=== PATIENT | male | born 1980 | race Hispanic/Latino ===

== ENCOUNTER 2017-09-28 09:09 | Outpatient (CLI) | payer OTHER | END 2017-09-28 09:10 | disposition home or self-care (01) | LOC: BICULT 09:09 → EDSTATUS 09:30 | PROVIDERS: ATTEND Family Medicine | DX: R10.9 Unspecified abdominal pain (principal); R93.2 Abnormal findings on diagnostic imaging of liver and biliary tract | CPT/HCPCS: 76705 ==

== ENCOUNTER 2017-10-05 07:08 | Emergency (ER) | payer OTHER ==
[2017-10-05] MEDS ORDERED: Ketorolac Tromethamine 30 MG/ML VIAL ONE (07:32)
[2017-10-05 07:41] LABS: #Basophils 0.1 thou/uL (0.0-0.2); #Eosinphils 0.2 thou/uL (0.0-0.7); #Lymphocytes 3.3 thou/uL (1.20-3.40); #Monocytes 1.3 thou/uL (0.11-0.59); #Neutrophils 10.1 thou/uL (1.40-6.50); %Basophils 0.9 % (0.0-1.0); %Eosinophils 1.3 % (0.0-10.0); %Lymphocytes 21.8 % (21.0-51.0); %Monocytes 8.6 % (0.0-10.0); %Neutrophils 67.4 % (42.0-75.0); Hemoglobin 13.9 g/dL (14.0-18.0); Mean Corpuscular HGB CONC 33.5 g/dL (32.0-36.0); Mean Corpuscular Hemoglobin 27.8 pg (27.0-31.0); Mean Corpuscular Volume 83.1 fL (78.0-98.0); Mean Platelet Volume 6.7 fL (7.4-10.4); Platelet Count 340 thou/uL (130-400); RBC Distribution Width 12.6 % (11.5-14.5); White Blood Cell (WBC) Count 14.9 thou/uL (4.8-10.8)
[2017-10-05 07:54] LABS: ALT (SGPT) 23 U/L (8-55); AST (SGOT) 15 U/L (5-34); Alkaline Phosphatase 64 U/L (40-150); Anion Gap 13 mmol/L (10-20); BUN (Urea Nitrogen) 15 mg/dL (8.9-20.6); Calc. Creatinine Clearance 0 mL/min (70-130); Calcium 9.2 mg/dL (7.8-10.44); Carbon Dioxide 23 mmol/L (22-29); Chloride 103 mmol/L (98-107); Estimated GFR-MDRD Greater than 90; Globulin 3.8 g/dL (2.4-3.5); Glucose 136 mg/dL (70-105); Lipase 15 U/L (8-78); Protein, Total 7.8 g/dL (6.0-8.3); Sodium 135 mmol/L (136-145)
[2017-10-05] MEDS ORDERED: metroNIDAZOLE 500 MG/100 ML BAG ONE (08:09)
--- NOTE | 2017-10-05 08:39 | CT ---
CT ABDOMEN AND PELVIS NONCONTRAST: Date: 10/05/17 HISTORY: Flank pain. FINDINGS: No comparison. Each renal collecting system, ureter, and the urinary bladder are decompressed. A 0.1 cm calculus is present within a nondilated viv at the superior pole right kidney. Lack of contrast limits evaluation for other abnormalities. Liver is diffusely hypodense. No evidence of bowel obstruction. Degenerative changes lumbar spine. Prominent diverticula arising from the colo n, most pronounced at the sigmoid colon. Subtle stranding within the abdominal fat surrounding the up per sigmoid colon. IMPRESSION: 1. Tiny, nonobstructing right renal calculus. 2. Sigmoid diverticulitis. 3. Hepatic steatosis. POS: [facility]
== END 2017-10-05 10:16 | disposition home or self-care (01) ==
LOC: SCSER 07:08
DX: K57.32 Diverticulitis of large intestine without perforation or abscess without bleeding (principal); E78.5 Hyperlipidemia, unspecified; I10 Essential (primary) hypertension; G89.29 Other chronic pain; M54.9 Dorsalgia, unspecified
CPT/HCPCS: 74176; 80053; 83605; 83690; 85025; 96365; 96367; 96375; J1885; J1956

== ENCOUNTER 2018-03-12 17:00 | Outpatient (CLI) | payer OTHER | END 2018-03-12 17:01 | disposition home or self-care (01) | LOC: SLEEPLAB 17:00 | PROVIDERS: ATTEND Family Medicine | DX: G47.33 Obstructive sleep apnea (adult) (pediatric) (principal); E66.9 Obesity, unspecified; F41.9 Anxiety disorder, unspecified; F32.9 Major depressive disorder, single episode, unspecified; R09.89 Other specified symptoms and signs involving the circulatory and respiratory systems; Z68.42 Body mass index [BMI] 45.0-49.9, adult | CPT/HCPCS: 95806 ==

== ENCOUNTER 2020-01-08 13:54 | Emergency (ER) | payer BC, SELFPAY ==
--- NOTE | 2020-01-08 14:19 | RAD ---
CHEST 1 VIEW: Date: 01/08/2020 HISTORY: Chest pain. COMPARISON: None. FINDINGS: Lungs are clear. No pneumothorax or effusion. Cardiac silhouette and mediastinal contours are within normal limits. No acute osseous abnormality. IMPRESSION: No acute intrathoracic abnormality. POS: [facility]
[2020-01-08 14:20] LABS: #Basophils 0.1 thou/uL (0.0-0.2); #Eosinphils 0.3 thou/uL (0.0-0.7); #Lymphocytes 2.3 thou/uL (1.20-3.40); #Monocytes 0.5 thou/uL (0.11-0.59); #Neutrophils 7.1 thou/uL (1.40-6.50); %Basophils 0.6 % (0.0-1.0); %Eosinophils 2.6 % (0.0-10.0); %Lymphocytes 22.6 % (21.0-51.0); %Monocytes 5.3 % (0.0-10.0); Hemoglobin 13.5 g/dL (14.0-18.0); Mean Corpuscular HGB CONC 32.6 g/dL (32.0-36.0); Mean Corpuscular Hemoglobin 28.7 pg (27.0-31.0); Mean Corpuscular Volume 87.9 fL (78.0-98.0); Mean Platelet Volume 7.1 fL (7.4-10.4); Platelet Count 388 thou/uL (130-400); RBC Distribution Width 12.4 % (11.5-14.5); Red Blood Cell (RBC) Count 4.72 mill/uL (4.70-6.10); White Blood Cell (WBC) Count 10.3 thou/uL (4.8-10.8)
[2020-01-08 14:44] LABS: ALT (SGPT) 25 U/L (8-55); AST (SGOT) 20 U/L (5-34); Albumin 4.2 g/dL (3.5-5.0); Alkaline Phosphatase 69 U/L (40-110); Anion Gap 15 mmol/L (10-20); BUN (Urea Nitrogen) 17 mg/dL (8.9-20.6); Bilirubin, Total 0.4 mg/dL (0.2-1.2); Calc. Creatinine Clearance 0 mL/min (70-130); Calcium 9.3 mg/dL (7.8-10.44); Carbon Dioxide 24 mmol/L (22-29); Chloride 101 mmol/L (98-107); Estimated GFR-MDRD 82; Globulin 3.6 g/dL (2.4-3.5); Glucose 196 mg/dL (70-105); Lipase 44 U/L (8-78); Protein, Total 7.8 g/dL (6.0-8.3); Sodium 136 mmol/L (136-145)
[2020-01-08] MEDS ORDERED: Aspirin 325 MG TAB ONE (14:49)
[2020-01-08] MEDS ORDERED: Diazepam 10 MG/2 ML SYRINGE ONE (15:23)
[2020-01-08] MEDS ORDERED: Acetaminophen 500 MG TAB ONE (15:23)
[2020-01-08 17:47] LABS: Troponin I Less than 0.010 ng/mL (< 0.028)
--- NOTE | 2020-01-18 11:01 | EKG ---
Test Reason : Blood Pressure : / mmHG Vent. Rate : 080 BPM Atrial Rate : 080 BPM P-R Int : 158 ms QRS Dur : 080 ms QT Int : 386 ms P-R-T Axes : 033 039 043 degrees QTc Int : 445 ms Poor data quality, interpretation may be adversely affected Normal sinus rhythm Normal ECG Confirmed by CARLOS DANIELSON DO ([id number]), news videotape editor MARISA GREENE ([id number] on 01/18/2020 11:00:56 AM Referred By: Confirmed By:CARLOS DANIELSON DO
== END 2020-01-08 19:26 | disposition home or self-care (01) ==
LOC: ERS 13:54
DX: R07.9 Chest pain, unspecified (principal); R00.2 Palpitations; E78.5 Hyperlipidemia, unspecified; I10 Essential (primary) hypertension; E11.9 Type 2 diabetes mellitus without complications; F41.9 Anxiety disorder, unspecified; Z79.84 Long term (current) use of oral hypoglycemic drugs; Z79.899 Other long term (current) drug therapy
CPT/HCPCS: 36415; 71045; 80053; 83690; 84484; 85025; 93005; 94760; 96374; J3360

== ENCOUNTER 2020-01-13 02:26 | Emergency (ER) | payer BC, SELFPAY ==
[2020-01-13] MEDS ORDERED: diphenhydrAMINE 50 MG/ML VIAL ONE (02:49)
[2020-01-13] MEDS ORDERED: Metoclopramide HCl 10 MG/2 ML VIAL ONE (02:49)
[2020-01-13] MEDS ORDERED: Acetaminophen 500 MG TAB ONE (02:49)
[2020-01-13] MEDS ORDERED: Ketorolac Tromethamine 30 MG/ML VIAL ONE (02:49)
== END 2020-01-13 04:25 | disposition home or self-care (01) ==
LOC: ERS 02:26
DX: R51.9 Headache, unspecified (principal); E78.5 Hyperlipidemia, unspecified; I10 Essential (primary) hypertension; E11.9 Type 2 diabetes mellitus without complications; F41.9 Anxiety disorder, unspecified; Z79.84 Long term (current) use of oral hypoglycemic drugs; Z79.899 Other long term (current) drug therapy
CPT/HCPCS: 96365; 96375; J1200; J1885; J2765

== ENCOUNTER 2020-03-21 18:18 | Emergency (ER) | payer BC, SELFPAY ==
[2020-03-21 18:58] LABS: #Basophils 0.1 thou/uL (0.0-0.2); #Eosinphils 0.4 thou/uL (0.0-0.7); #Lymphocytes 3.3 thou/uL (1.20-3.40); #Monocytes 0.8 thou/uL (0.11-0.59); #Neutrophils 6.8 thou/uL (1.40-6.50); %Basophils 0.7 % (0.0-1.0); %Eosinophils 3.9 % (0.0-10.0); %Lymphocytes 29.1 % (21.0-51.0); %Monocytes 6.6 % (0.0-10.0); %Neutrophils 59.7 % (42.0-75.0); Hemoglobin 13.5 g/dL (14.0-18.0); Mean Corpuscular HGB CONC 33.8 g/dL (32.0-36.0); Mean Corpuscular Hemoglobin 29.5 pg (27.0-31.0); Mean Corpuscular Volume 87.3 fL (78.0-98.0); Platelet Count 360 thou/uL (130-400); RBC Distribution Width 12.3 % (11.5-14.5); Red Blood Cell (RBC) Count 4.59 mill/uL (4.70-6.10); White Blood Cell (WBC) Count 11.4 thou/uL (4.8-10.8)
[2020-03-21 19:17] LABS: ALT (SGPT) 26 U/L (8-55); AST (SGOT) 16 U/L (5-34); Albumin 4.1 g/dL (3.5-5.0); Alkaline Phosphatase 72 U/L (40-110); Anion Gap 16 mmol/L (10-20); BUN (Urea Nitrogen) 19 mg/dL (8.9-20.6); Bilirubin, Total 0.3 mg/dL (0.2-1.2); Calc. Creatinine Clearance 0 mL/min (70-130); Calcium 9.3 mg/dL (7.8-10.44); Carbon Dioxide 22 mmol/L (22-29); Chloride 102 mmol/L (98-107); Globulin 3.8 g/dL (2.4-3.5); Glucose 112 mg/dL (70-105); Lipase 44 U/L (8-78); Potassium 4.1 mmol/L (3.5-5.1); Protein, Total 7.9 g/dL (6.0-8.3); Sodium 136 mmol/L (136-145)
[2020-03-21] MEDS ORDERED: Ondansetron PF 4 MG/2 ML Vial ONE (19:57)
[2020-03-21] MEDS ORDERED: Morphine 4 MG/ML VIAL ONE (19:57)
--- NOTE | 2020-03-21 22:14 | ULT ---
ULTRASOUND GALLBLADDER RIGHT UPPER QUADRANT: History: Abdominal pain Comparison: None FINDINGS: Real-time grayscale and color evaluation of the right upper quadrant of the abdomen was performed. Visualized portion of the IVC, aorta, and pancreas unremarkable. Diffuse increased hepatic echotextur e with poor penetration. Gallbladder wall thickness is normal. No pericholecystic fluid. No cholelith iasis. No common bile duct dilatation. Right kidney measures 11.7 x 6.1 x 7.2 cm without mass, hydronephrosi s, or calcification present. IMPRESSION: 1. Diffuse hepatic steatosis. 2. No cholelithiasis or cholecystitis. POS: [facility]
[2020-03-22 00:48] LABS: Bilirubin Negative (Negative); Blood, Urine Negative (Negative); Clarity Clear (Clear); Glucose, Urine (Dipstick) Normal (Negative); Ketone, Urine Negative (Negative); Leukocyte Negative Leu/uL (Negative); Nitrite Negative (Negative); Protein, Urine (Dipstick) Negative (Neg-Trace); Specific Gravity, Urine 1.023 (1.002-1.036); Urobilinogen Normal mg/dL (Less than 2)
== END 2020-03-21 21:29 | disposition home or self-care (01) ==
LOC: ERS 18:18
DX: R10.11 Right upper quadrant pain (principal); E78.5 Hyperlipidemia, unspecified; I10 Essential (primary) hypertension; E11.9 Type 2 diabetes mellitus without complications
CPT/HCPCS: 36415; 76705; 80053; 81003; 83690; 84484; 85025; 93005; 96374; J2270; J2405

== ENCOUNTER 2020-07-14 21:07 | Emergency (ER) | payer BC ==
[2020-07-14 21:35] LABS: #Basophils 0.1 thou/uL (0.0-0.2); #Eosinphils 0.4 thou/uL (0.0-0.7); #Lymphocytes 3.8 thou/uL (1.20-3.40); #Monocytes 0.8 thou/uL (0.11-0.59); %Basophils 0.7 % (0.0-1.0); %Eosinophils 2.6 % (0.0-10.0); %Lymphocytes 26.9 % (21.0-51.0); %Monocytes 5.8 % (0.0-10.0); %Neutrophils 63.9 % (42.0-75.0); Hemoglobin 13.5 g/dL (14.0-18.0); Mean Corpuscular HGB CONC 33.1 g/dL (32.0-36.0); Mean Corpuscular Volume 87.6 fL (78.0-98.0); Mean Platelet Volume 7.1 fL (7.4-10.4); Platelet Count 394 thou/uL (130-400); RBC Distribution Width 12.6 % (11.5-14.5); Red Blood Cell (RBC) Count 4.66 mill/uL (4.70-6.10)
[2020-07-14 21:55] LABS: ALT (SGPT) 20 U/L (8-55); AST (SGOT) 18 U/L (5-34); Albumin 4.2 g/dL (3.5-5.0); Alkaline Phosphatase 71 U/L (40-110); Anion Gap 14 mmol/L (10-20); BUN (Urea Nitrogen) 16 mg/dL (8.9-20.6); Bilirubin, Total 0.3 mg/dL (0.2-1.2); Calc. Creatinine Clearance 0 mL/min (70-130); Calcium 9.4 mg/dL (7.8-10.44); Carbon Dioxide 26 mmol/L (22-29); Chloride 101 mmol/L (98-107); Globulin 3.8 g/dL (2.4-3.5); Glucose 188 mg/dL (70-105); Potassium 3.9 mmol/L (3.5-5.1); Sodium 137 mmol/L (136-145)
[2020-07-14] MEDS ORDERED: Lidocaine Viscous Sol 2% 15 ml UD Cup ONE (22:36)
[2020-07-14] MEDS ORDERED: Mag-Al 1200 mg/1200 mg/30 ML UDCUP ONE (22:36)
== END 2020-07-14 23:21 | disposition home or self-care (01) ==
LOC: ERS 21:07
DX: R07.2 Precordial pain (principal); R10.13 Epigastric pain; Z79.899 Other long term (current) drug therapy; Z79.84 Long term (current) use of oral hypoglycemic drugs; E78.5 Hyperlipidemia, unspecified; I10 Essential (primary) hypertension; E11.9 Type 2 diabetes mellitus without complications
CPT/HCPCS: 36415; 71045; 80053; 83880; 84484; 85025; 93005

== ENCOUNTER 2021-09-14 11:39 | Inpatient (IN) | payer BC ==
[~2021-09-14 11:39] MED LIST: Iopamidol-370 76% 500 ML 1 ML ONE
[2021-09-14 12:15] LABS: #Eosinphils 0.8 thou/uL (0.0-0.7); #Lymphocytes 1.6 thou/uL (1.20-3.40); #Neutrophils 9.4 thou/uL (1.40-6.50); %Basophils 0.2 % (0.0-1.0); %Eosinophils 6.6 % (0.0-10.0); %Lymphocytes 12.2 % (21.0-51.0); %Monocytes 8.1 % (0.0-10.0); %Neutrophils 72.9 % (42.0-75.0); Hemoglobin 11.9 g/dL (14.0-18.0); Mean Corpuscular HGB CONC 31.7 g/dL (32.0-36.0); Mean Corpuscular Hemoglobin 27.3 pg (27.0-31.0); Mean Platelet Volume 6.1 fL (7.4-10.4); Platelet Count 566 thou/uL (130-400); RBC Distribution Width 13.2 % (11.5-14.5); Red Blood Cell (RBC) Count 4.36 mill/uL (4.70-6.10); White Blood Cell (WBC) Count 12.8 thou/uL (4.8-10.8)
[2021-09-14 12:43] LABS: ALT (SGPT) 39 U/L (8-55); AST (SGOT) 22 U/L (5-34); Alkaline Phosphatase 68 U/L (40-110); Anion Gap 15 mmol/L (10-20); BUN (Urea Nitrogen) 14 mg/dL (8.9-20.6); Bilirubin, Total 0.8 mg/dL (0.2-1.2); Calc. Creatinine Clearance 0 mL/min (70-130); Calcium 9.7 mg/dL (7.8-10.44); Carbon Dioxide 23 mmol/L (22-29); Chloride 100 mmol/L (98-107); Globulin 4.6 g/dL (2.4-3.5); Glucose 164 mg/dL (70-105); Potassium 4.1 mmol/L (3.5-5.1); Protein, Total 8.6 g/dL (6.0-8.3); Sodium 134 mmol/L (136-145)
[2021-09-14] MEDS ORDERED: Acetaminophen 500 MG TAB ONE (15:41)
[2021-09-14] MEDS ORDERED: Piperacillin/Tazobactam 3.375 GM in Sodium Chloride 0.9% 100 ML IVPB SCH (17:30)
[2021-09-14] MEDS ORDERED: VANCOMYCIN 2 GRAM/500 ML BAG 2 GM in Premix Bag 1 BAG IVPB SCH (17:30)
[2021-09-14] MEDS ORDERED: Piperacillin/Tazobactam 3.375 GM VIAL ONE (17:50)
[2021-09-14] MEDS ORDERED: Ondansetron PF 4 MG/2 ML Vial IVP PRN (18:43)
[2021-09-14] MEDS ORDERED: Dextrose 50% Abboject 50 ML SYRINGE SLOW IVP PRN (18:57)
[2021-09-14] MEDS ORDERED: HumaLOG 300 UNITS/3 ML VIAL SC PRN (18:57)
[2021-09-14] MEDS ORDERED: Dextrose 5% in Water 1,000 ML IV PRN (18:57)
[2021-09-14] MEDS ORDERED: Bisacodyl 5 MG TAB PO SCH (19:02)
[2021-09-14] MEDS ORDERED: Melatonin 3 MG TAB PO PRN (19:02)
[2021-09-14] MEDS ORDERED: Bisacodyl 5 MG TAB PO PRN (19:02)
[2021-09-14] MEDS: Heparin 5,000 UNITS/ML VIAL SC SCH (20:13)
[2021-09-14] MEDS ORDERED: Pantoprazole 40 MG VIAL IVP SCH (21:00)
[2021-09-14 22:06] VITALS: BMI 43.7
[2021-09-14] MEDS ORDERED: hydrALAZINE 20 MG/ML VIAL SLOW IVP PRN (22:39)
[2021-09-14] MEDS ORDERED: clonazePAM 1 MG TAB PO PRN (22:40)
[2021-09-14] MEDS: Piperacillin/Tazobactam 3.375 GM in Sodium Chloride 0.9% 100 ML IVPB SCH (22:59)
[2021-09-14] MEDS ORDERED: Sucralfate 1 GM TAB PO SCH (23:00)
[2021-09-14] MEDS ORDERED: Atorvastatin Calcium 10 MG TAB PO SCH (23:00)
[2021-09-15] MEDS: Vancomycin 1.5 GRAM/300 ML BAG 1.5 GM in Premix Bag 1 BAG IVPB SCH ×2 (04:15→15:35)
[2021-09-15 05:10] LABS: #Basophils 0.1 thou/uL (0.0-0.2); #Lymphocytes 1.3 thou/uL (1.20-3.40); #Monocytes 0.8 thou/uL (0.11-0.59); #Neutrophils 7.7 thou/uL (1.40-6.50); %Basophils 0.5 % (0.0-1.0); %Eosinophils 8.8 % (0.0-10.0); %Monocytes 7.6 % (0.0-10.0); %Neutrophils 71.1 % (42.0-75.0); Hemoglobin 11.8 g/dL (14.0-18.0); Mean Corpuscular HGB CONC 32.4 g/dL (32.0-36.0); Mean Corpuscular Hemoglobin 28.1 pg (27.0-31.0); Mean Corpuscular Volume 86.7 fL (78.0-98.0); Mean Platelet Volume 6.5 fL (7.4-10.4); Platelet Count 472 thou/uL (130-400); RBC Distribution Width 13.2 % (11.5-14.5); Red Blood Cell (RBC) Count 4.21 mill/uL (4.70-6.10); White Blood Cell (WBC) Count 10.9 thou/uL (4.8-10.8)
[2021-09-15 05:27] LABS: INR-International Normal Ratio 1.1; Prothrombin Time 14.7 sec (12.0-14.7)
[2021-09-15 05:41] LABS: ALT (SGPT) 31 U/L (8-55); AST (SGOT) 21 U/L (5-34); Albumin 3.6 g/dL (3.5-5.0); Alkaline Phosphatase 63 U/L (40-110); Anion Gap 13 mmol/L (10-20); BUN (Urea Nitrogen) 14 mg/dL (8.9-20.6); Bilirubin, Total 0.6 mg/dL (0.2-1.2); Calc. Creatinine Clearance 231 mL/min (70-130); Calcium 9.4 mg/dL (7.8-10.44); Carbon Dioxide 24 mmol/L (22-29); Chloride 101 mmol/L (98-107); Cholesterol 157 mg/dl (< 200 Desired); Globulin 4.4 g/dL (2.4-3.5); Glucose 168 mg/dL (70-105); HDL Cholesterol 26 mg/dL (>60 Neg Risk); LDL Cholesterol, Calculated 105 mg/dL; Potassium 4.2 mmol/L (3.5-5.1); Sodium 134 mmol/L (136-145); Triglycerides 132 mg/dL (Less than 150)
[2021-09-15] MEDS: Piperacillin/Tazobactam 3.375 GM in Sodium Chloride 0.9% 100 ML IVPB SCH (06:07)
[2021-09-15] MEDS: Sucralfate 1 GM TAB PO SCH ×3 (06:08→18:42)
[2021-09-15] MEDS ORDERED: Pantoprazole 40 MG VIAL IVP SCH (09:00)
[2021-09-15] MEDS ORDERED: Bupivacaine PF 0.5% 30 ML VIAL ONE (10:48)
[2021-09-15] MEDS ORDERED: EPINEPHrine 1 MG/ML AMP ONE (10:48)
[2021-09-15] MEDS ORDERED: PROPOFOL 200 MG/20 ML VIAL ONE (10:54)
[2021-09-15] MEDS ORDERED: Metoclopramide HCl 10 MG/2 ML VIAL ONE (10:54)
[2021-09-15] MEDS ORDERED: Glycopyrrolate 0.2 MG/ML 5 ML SYRINGE ONE (10:54)
[2021-09-15] MEDS ORDERED: Ondansetron PF 4 MG/2 ML Vial ONE (10:54)
[2021-09-15] MEDS ORDERED: Rocuronium Bromide 10 MG/ML (10ML VIAL) ONE (10:54)
[2021-09-15] MEDS ORDERED: fentaNYL Citrate/PF 100 MCG/2 ML SYRINGE ONE ×2 (10:56→12:06)
[2021-09-15] MEDS ORDERED: Fentanyl 100 MCG/2 ML VIAL SLOW IVP PRN (12:24)
[2021-09-15] MEDS ORDERED: Ketorolac Tromethamine 30 MG/ML VIAL ONE (12:43)
[2021-09-15] MEDS ORDERED: Ketorolac Tromethamine 30 MG/ML VIAL IVP PRN (12:48)
[2021-09-15] MEDS ORDERED: Ondansetron HCl/PF 4 MG/2 ML Vial IVP PRN (12:48)
[2021-09-15] MEDS ORDERED: Promethazine HCl 25 MG/ML VIAL IM PRN (12:48)
[2021-09-15] MEDS ORDERED: Promethazine HCl 25 MG/ML VIAL IVPB PRN (12:48)
[2021-09-15] MEDS ORDERED: Fentanyl 100 MCG/2 ML VIAL ONE ×2 (12:51→13:10)
[2021-09-15] MEDS: HYDROcodone/Acetaminophen 5/325 mg Tablet PO PRN ×2 (14:10→20:14)
[2021-09-15] MEDS: Heparin 5,000 UNITS/ML VIAL SC SCH ×2 (14:48→20:17)
[2021-09-15 14:59] LABS: RBC Count-Automated (BF) 321427 /cu.mm; WBC/Nucleated-Auto (BF) 3668 /cu.mm
[2021-09-15 15:00] LABS: BF Color Red; Body Fluid Source Pericardial Fluid; Clarity Cloudy/Turbid (Clear); Tube # EDTA
[2021-09-15 16:02] LABS: BF Segmented Neutrophils 6 %; Cell Count Non Hematic 7 %; Eosinophils 3 %; Lymphocytes 84 %
[2021-09-15] MEDS: CEFAZOLIN 1 GM VIAL SLOW IVP SCH (20:12)
[2021-09-15] MEDS: Colchicine 0.6 MG TAB PO SCH (20:13)
[2021-09-15] MEDS: Atorvastatin Calcium 10 MG TAB PO SCH (20:13)
[2021-09-16] MEDS: HYDROcodone/Acetaminophen 5/325 mg Tablet PO PRN ×5 (00:55→21:49)
[2021-09-16] MEDS: CEFAZOLIN 1 GM VIAL SLOW IVP SCH ×3 (03:57→20:40)
[2021-09-16 05:05] LABS: Hemoglobin 11.6 g/dL (14.0-18.0); Mean Corpuscular HGB CONC 31.2 g/dL (32.0-36.0); Mean Corpuscular Hemoglobin 27.1 pg (27.0-31.0); Platelet Count 507 thou/uL (130-400); RBC Distribution Width 13.3 % (11.5-14.5); Red Blood Cell (RBC) Count 4.26 mill/uL (4.70-6.10); White Blood Cell (WBC) Count 13.9 thou/uL (4.8-10.8)
[2021-09-16 05:27] LABS: Anion Gap 13 mmol/L (10-20); BUN (Urea Nitrogen) 11 mg/dL (8.9-20.6); Calc. Creatinine Clearance 275 mL/min (70-130); Calcium 8.9 mg/dL (7.8-10.44); Carbon Dioxide 22 mmol/L (22-29); Chloride 100 mmol/L (98-107); Glucose 177 mg/dL (70-105); Potassium 4.3 mmol/L (3.5-5.1); Sodium 131 mmol/L (136-145)
[2021-09-16] MEDS: PARoxetine 20 MG TAB PO SCH (09:08)
[2021-09-16] MEDS: Sucralfate 1 GM TAB PO SCH ×3 (09:08→15:46)
[2021-09-16] MEDS: Lisinopril 10 MG TAB PO SCH (09:08)
[2021-09-16] MEDS: Colchicine 0.6 MG TAB PO SCH ×2 (09:08→20:39)
[2021-09-16] MEDS: Atenolol 50 MG TAB PO SCH (09:09)
[2021-09-16] MEDS: Heparin 5,000 UNITS/ML VIAL SC SCH ×2 (10:59→20:39)
[2021-09-16] MEDS: HumaLOG 300 UNITS/3 ML VIAL SC PRN (11:44)
[2021-09-16] MEDS: Atorvastatin Calcium 10 MG TAB PO SCH (20:39)
[2021-09-17] MEDS: HYDROcodone/Acetaminophen 5/325 mg Tablet PO PRN ×5 (03:00→22:48)
[2021-09-17] MEDS: CEFAZOLIN 1 GM VIAL SLOW IVP SCH ×2 (03:01→14:58)
[2021-09-17] MEDS: Sucralfate 1 GM TAB PO SCH ×3 (08:33→18:03)
[2021-09-17] MEDS: Atenolol 50 MG TAB PO SCH (08:33)
[2021-09-17] MEDS: Colchicine 0.6 MG TAB PO SCH ×2 (08:33→20:43)
[2021-09-17] MEDS: PARoxetine 20 MG TAB PO SCH (08:34)
[2021-09-17] MEDS: Heparin 5,000 UNITS/ML VIAL SC SCH ×2 (08:34→20:43)
[2021-09-17] MEDS: Lisinopril 10 MG TAB PO SCH (08:34)
[2021-09-17] MEDS: HumaLOG 300 UNITS/3 ML VIAL SC PRN ×2 (12:06→18:04)
[2021-09-17] MEDS ORDERED: Docusate 100 MG CAP PO PRN (12:56)
[2021-09-17] MEDS ORDERED: Polyethylene Glycol 3350 17 GM Packet PO PRN (12:56)
[2021-09-17] MEDS ORDERED: Docusate 100 MG CAP PO SCH (13:00)
[2021-09-17] MEDS: Atorvastatin Calcium 10 MG TAB PO SCH (20:43)
[2021-09-18] MEDS: HYDROcodone/Acetaminophen 5/325 mg Tablet PO PRN ×2 (03:47→10:44)
[2021-09-18 05:17] LABS: Anion Gap 12 mmol/L (10-20); BUN (Urea Nitrogen) 12 mg/dL (8.9-20.6); Calc. Creatinine Clearance 272 mL/min (70-130); Calcium 9.6 mg/dL (7.8-10.44); Carbon Dioxide 28 mmol/L (22-29); Chloride 100 mmol/L (98-107); Glucose 154 mg/dL (70-105); Potassium 3.9 mmol/L (3.5-5.1); Sodium 136 mmol/L (136-145)
[2021-09-18 05:18] LABS: Hemoglobin 11.8 g/dL (14.0-18.0); Mean Corpuscular HGB CONC 31.7 g/dL (32.0-36.0); Mean Corpuscular Hemoglobin 27.5 pg (27.0-31.0); Mean Corpuscular Volume 86.7 fL (78.0-98.0); Mean Platelet Volume 6.1 fL (7.4-10.4); Platelet Count 543 thou/uL (130-400); RBC Distribution Width 13.2 % (11.5-14.5); Red Blood Cell (RBC) Count 4.29 mill/uL (4.70-6.10); White Blood Cell (WBC) Count 9.6 thou/uL (4.8-10.8)
[2021-09-18] MEDS: Atenolol 50 MG TAB PO SCH (07:59)
[2021-09-18] MEDS: Sucralfate 1 GM TAB PO SCH (07:59)
[2021-09-18] MEDS: Lisinopril 10 MG TAB PO SCH (08:01)
[2021-09-18] MEDS: Heparin 5,000 UNITS/ML VIAL SC SCH (08:01)
[2021-09-18] MEDS: PARoxetine 20 MG TAB PO SCH (08:01)
[2021-09-18] MEDS: Colchicine 0.6 MG TAB PO SCH (08:01)
[2021-09-18 08:28] VITALS: BP 139/85; TEMP 98.1
[2021-09-20 16:36] LABS: Fungus Stain Final report (.); Fungus Stain Result 1 Yeast observed (.)
== END 2021-09-18 11:00 | disposition home or self-care (01) | DRG 271 ==
LOC: ERS 11:39 → 2SW 18:03 → OBSVTOIN 18:30
PROVIDERS: ADMIT Internal Medicine; ATTEND Internal Medicine
PROC: 0W9D0ZZ Drainage of Pericardial Cavity, Open Approach (ICD-10-PCS; principal; 2021-09-15)
DX: I30.9 Acute pericarditis, unspecified (principal); Z68.41 Body mass index [BMI] 40.0-44.9, adult; K21.9 Gastro-esophageal reflux disease without esophagitis; I10 Essential (primary) hypertension; G89.29 Other chronic pain; M54.9 Dorsalgia, unspecified; E11.65 Type 2 diabetes mellitus with hyperglycemia; E66.01 Morbid (severe) obesity due to excess calories; E78.2 Mixed hyperlipidemia; L40.9 Psoriasis, unspecified; E78.00 Pure hypercholesterolemia, unspecified; F41.9 Anxiety disorder, unspecified; Z20.822 Contact with and (suspected) exposure to COVID-19; Z88.1 Allergy status to other antibiotic agents; Z88.2 Allergy status to sulfonamides; Z79.82 Long term (current) use of aspirin; Z79.84 Long term (current) use of oral hypoglycemic drugs; Z79.899 Other long term (current) drug therapy; Z83.3 Family history of diabetes mellitus; Z80.0 Family history of malignant neoplasm of digestive organs
CPT/HCPCS: 36415; 36416; 71045; 71275; 80048; 80053; 80061; 82150; 82945; 83880; 84157; 84443; 84484; 85025; 85027; 85060; 85610; 85730; 87070; 87102; 87205; 87206; 87804; 88112; 88305; 89051; 93005; 93306; 94760; 96365; C9113; J0171; J0690; J1644; J1815; J1885; J2405; J2543; J2704; J2765; J3010; J3370; J3490; Q9967; S0020; U0003; U0005

== ENCOUNTER 2021-09-19 03:55 | Emergency (ER) | payer BC | END 2021-09-19 05:32 | disposition home or self-care (01) | LOC: ERS 03:55 | DX: Z00.00 Encounter for general adult medical examination without abnormal findings (principal); I10 Essential (primary) hypertension; E11.9 Type 2 diabetes mellitus without complications; E78.5 Hyperlipidemia, unspecified; L40.9 Psoriasis, unspecified; Z79.82 Long term (current) use of aspirin; Z79.84 Long term (current) use of oral hypoglycemic drugs; Z79.899 Other long term (current) drug therapy | CPT/HCPCS: 99281 ==

== ENCOUNTER 2021-09-28 20:43 | Emergency (ER) | payer BC | END 2021-09-28 21:47 | disposition home or self-care (01) | LOC: ERS 20:43 | DX: I97.89 Other postprocedural complications and disorders of the circulatory system, not elsewhere classified (principal); E11.9 Type 2 diabetes mellitus without complications; I10 Essential (primary) hypertension; E78.5 Hyperlipidemia, unspecified; L40.9 Psoriasis, unspecified; Z79.899 Other long term (current) drug therapy; Z79.82 Long term (current) use of aspirin | CPT/HCPCS: 99283 ==

== ENCOUNTER 2022-06-25 18:56 | Emergency (ER) | payer BC ==
[2022-06-25] MEDS ORDERED: Dicyclomine 20 MG TAB ONE (19:51)
== END 2022-06-25 19:55 | disposition home or self-care (01) ==
LOC: ERS 18:56
DX: R19.7 Diarrhea, unspecified (principal); I10 Essential (primary) hypertension; E78.5 Hyperlipidemia, unspecified; E11.9 Type 2 diabetes mellitus without complications; Z79.899 Other long term (current) drug therapy; Z79.84 Long term (current) use of oral hypoglycemic drugs; Z79.82 Long term (current) use of aspirin
CPT/HCPCS: 99283

== ENCOUNTER 2022-08-06 14:40 | Emergency (ER) | payer BC ==
[2022-08-06] MEDS ORDERED: Aspirin Chewable 81 MG TAB ONE (15:54)
[2022-08-06 15:59] LABS: ALT (SGPT) 27 U/L (8-55); AST (SGOT) 18 U/L (5-34); Albumin 4.1 g/dL (3.5-5.0); Alkaline Phosphatase 67 U/L (40-110); Anion Gap 16 mmol/L (10-20); BUN (Urea Nitrogen) 18 mg/dL (8.9-20.6); Bilirubin, Total 0.3 mg/dL (0.2-1.2); Calc. Creatinine Clearance 0 mL/min (70-130); Calcium 9.2 mg/dL (7.8-10.44); Carbon Dioxide 19 mmol/L (22-29); Chloride 104 mmol/L (98-107); Estimated GFR 80; Globulin 3.8 g/dL (2.4-3.5); Glucose 186 mg/dL (70-105); Lipase 55 U/L (8-78); Potassium 4.4 mmol/L (3.5-5.1); Protein, Total 7.9 g/dL (6.0-8.3); Sodium 135 mmol/L (136-145)
[2022-08-06 16:10] LABS: #Basophils 0.1 thou/uL (0.0-0.2); #Eosinphils 0.4 thou/uL (0.0-0.7); #Lymphocytes 2.4 thou/uL (1.20-3.40); #Monocytes 0.8 thou/uL (0.11-0.59); #Neutrophils 8.9 thou/uL (1.40-6.50); %Basophils 0.4 % (0.0-1.0); %Eosinophils 3.3 % (0.0-10.0); %Monocytes 6.1 % (0.0-10.0); %Neutrophils 71.2 % (42.0-75.0); Hemoglobin 13.3 g/dL (14.0-18.0); Mean Corpuscular HGB CONC 33.4 g/dL (32.0-36.0); Mean Corpuscular Hemoglobin 29.4 pg (27.0-31.0); Mean Corpuscular Volume 87.8 fl (78.0-98.0); Mean Platelet Volume 7.7 fL (7.4-10.4); Platelet Count 352 10x3/uL (130-400); RBC Distribution Width 12.6 % (11.5-14.5); Red Blood Cell (RBC) Count 4.54 mill/uL (4.70-6.10); White Blood Cell (WBC) Count 12.5 10x3/uL (4.8-10.8)
== END 2022-08-06 17:57 | disposition home or self-care (01) ==
LOC: ERS 14:40
DX: R00.2 Palpitations (principal); D72.829 Elevated white blood cell count, unspecified; I10 Essential (primary) hypertension; E78.5 Hyperlipidemia, unspecified; E11.9 Type 2 diabetes mellitus without complications; Z79.899 Other long term (current) drug therapy; Z79.84 Long term (current) use of oral hypoglycemic drugs; Z79.82 Long term (current) use of aspirin
CPT/HCPCS: 36415; 71045; 80053; 83690; 84443; 84484; 85025; 93005

== ENCOUNTER 2023-03-23 15:59 | Emergency (ER) | payer BC ==
[2023-03-23 17:12] LABS: #Basophils 0.1 thou/uL (0.0-0.2); #Eosinphils 0.5 thou/uL (0.0-0.7); #Monocytes 0.8 thou/uL (0.11-0.59); #Neutrophils 6.7 thou/uL (1.40-6.50); %Basophils 0.5 % (0.0-1.0); %Eosinophils 4.4 % (0.0-10.0); %Lymphocytes 22.1 % (21.0-51.0); %Monocytes 7.5 % (0.0-10.0); Hematocrit 40.9 % (42.0-52.0); Hemoglobin 13.2 g/dL (14.0-18.0); Mean Corpuscular HGB CONC 32.3 g/dL (32.0-36.0); Mean Corpuscular Hemoglobin 27.8 pg (27.0-31.0); Mean Corpuscular Volume 86.1 fl (78.0-98.0); Mean Platelet Volume 9.3 fL (7.4-10.4); Platelet Count 347 10x3/uL (130-400); RBC Distribution Width 13.4 % (11.5-14.5); Red Blood Cell (RBC) Count 4.75 mill/uL (4.70-6.10); White Blood Cell (WBC) Count 10.3 10x3/uL (4.8-10.8)
[2023-03-23] MEDS ORDERED: Ketorolac Tromethamine 30 MG/ML VIAL ONE (17:33)
[2023-03-23 17:35] LABS: ALT (SGPT) 27 U/L (8-55); AST (SGOT) 17 U/L (5-34); Albumin 4.3 g/dL (3.5-5.0); Alkaline Phosphatase 63 U/L (40-110); Anion Gap 13 mmol/L (10-20); BUN (Urea Nitrogen) 15 mg/dL (8.9-20.6); Bilirubin, Total 0.5 mg/dL (0.2-1.2); Calc. Creatinine Clearance 0 mL/min (70-130); Calcium 8.9 mg/dL (7.8-10.44); Carbon Dioxide 26 mmol/L (22-29); Chloride 100 mmol/L (98-107); Estimated GFR 107; Glucose 128 mg/dL (70-105); Potassium 4.2 mmol/L (3.5-5.1); Protein, Total 7.3 g/dL (6.0-8.3); Sodium 135 mmol/L (136-145)
[2023-03-23 17:39] LABS: Troponin I Less than 0.010 ng/mL (< 0.028)
== END 2023-03-23 18:06 | disposition home or self-care (01) ==
LOC: ERS 15:59
DX: E11.42 Type 2 diabetes mellitus with diabetic polyneuropathy (principal); I10 Essential (primary) hypertension; E78.5 Hyperlipidemia, unspecified; Z79.82 Long term (current) use of aspirin; Z79.899 Other long term (current) drug therapy
CPT/HCPCS: 71045; 80053; 84484; 85025; 93005; 96374; J1885

== ENCOUNTER 2023-04-29 12:33 | Emergency (ER) | payer BC | END 2023-04-29 16:12 | disposition home or self-care (01) | LOC: ERS 12:33 | DX: M25.561 Pain in right knee (principal); E11.9 Type 2 diabetes mellitus without complications; I10 Essential (primary) hypertension ==